=== PATIENT | female | born 1945 | race Caucasian/White ===

== ENCOUNTER 2016-10-31 21:26 | Observation (INO) | payer MEDICAID, MEDICARE, OTHER ==
--- NOTE | 2016-10-31 21:43 | ERNOTE ---
Neuro HPI ER Record Presenting Symptoms: weakness Time Seen by Provider: 10/31/16 21:30 Source: EMS Exam Limitations: clinical condition Allergies/Adverse Reactions: Allergies Allergy/AdvReac Type Severity Reaction Status Date / Time codeine Allergy Verified 11/30/13 17:21 Iodinated Contrast Media - Allergy Verified 11/30/13 17:21 Oral and [Iodinated Contrast Media - IV Dye] meperidine HCl [From Demerol] Allergy Verified 11/30/13 17:21 Home Medications: HOME MEDICATIONS Albuterol Sulfate [Albuterol Sulfate 2.5 MG/0.5ML] 2.5 mg IH QID 11/30/13 [Last Taken Unknown] Alprazolam [Xanax] 0.5 mg PO BID PRN 11/30/13 [Last Taken Unknown] Amitriptyline HCl 100 mg PO HS 11/30/13 [Last Taken Unknown] Atorvastatin Calcium [Lipitor] 80 mg PO HS 11/30/13 [Last Taken Unknown] Dexlansoprazole [Dexilant] 60 mg PO DAILY 11/30/13 [Last Taken Unknown] Ezetimibe [Zetia] 10 mg PO DAILY 11/30/13 [Last Taken Unknown] Furosemide [Lasix] 80 mg PO DAILY 11/30/13 [Last Taken Unknown] HYDROcodone/ACETAMINOPHEN [Vicodin 5-325] 1 each PO Q6H PRN 11/30/13 [Last Taken Unknown] Levothyroxine Sodium [Tirosint] 112 mcg PO DAILY 11/30/13 [Last Taken Unknown] Lisinopril 20 mg PO DAILY 11/30/13 [Last Taken Unknown] Omeprazole 20 mg PO DAILY 11/30/13 [Last Taken Unknown] Mometasone/Formoterol [Dulera 200 Mcg/5 Mcg Inhaler] 1 puff IH 10/31/16 [Last Taken Unknown] - History of Present Illness Narrative: Pt found around 20:00 by friend, confused and less responsive. Called EMS. pt complains of both headache then leg pain then denies Onset: cannot confirm onset Severity: moderate, severe - Character of Deficits Baseline Cognition: Present: alert, oriented x 4 Prior Treament: Reports: recently seen - yesterday by her PCP for headache, no abnormality found (per friends) and pt went home to sleep it off. Review of Systems - Narrative Narrative: minimal information available due to pt's MS. - Review of Systems Constitutional: Present: See HPI Gastrointestinal/Abdominal: Present: nausea, vomiting - today Neurological: Present: See HPI, headache - Patient's Past Medical History Patient History - Medical: Hypothyroidism Patient History - Cardiac/Respiratory: COPD, Hypertension Physical Exam - Physical Exam General Appearance: Present: wd/wn, alert, mild distress, anxious Eye Exam: Normal inspection: right, Abnormal pupil: bilateral - cataracts bilateral pupils slow to respond Neck: Present: normal inspection, supple Respiratory: Present: no respiratory distress, normal breath sounds, chest nontender, lungs clear Cardiovascular/Chest: Present: regular rate, rhythm, no murmur Gastrointestinal/Abdominal: Present: nontender, soft, abnormal bowel sounds - hypoactive Extremity Exam: Present: normal inspection, normal range of motion Neurological Exam: Present: alert, disoriented to time, disoriented to place, disoriented to situation, other - pt aggitated and restless. Skin Exam: Present: normal color, warm/dry Arsen Coma Scale - Assess Eye Opening: Spontaneous Motor: Obeys Commands Verbal: Confused - Total Coma Scale Total: 14 Stroke Inclusion/Exclusion Cri - Inclusion Questions: Onset of symptoms <3 1/2 hours of admission to ETC: No ED Progress - Results and Orders Patient's Lab Results:: I have reviewed the patient's lab results. Results and Orders: Laboratory Tests 10/31/16 10/31/16 10/31/16 21:35 21:35 22:02 WBC 12.3 H Hgb 9.0 L Hct 30.3 L Plt Count 449 Neutrophils % 79.3 H Sodium 131 L Potassium 3.9 Chloride 94 L Carbon Dioxide 26.0 Anion Gap 14.9 H BUN 13 Creatinine 0.84 Est GFR (Non-Af Amer) 71 BUN/Creatinine Ratio 15.5 Random Glucose 124 H Lactic Acid, Venous Calcium 9.1 Total Bilirubin 0.7 AST 29 ALT 15 L Alkaline Phosphatase 101 Total Protein 8.9 H Albumin 3.5 Urine Color Yellow Urine Appearance Clear Urine pH 6.0 Ur Specific [place] >=1.030 Urine Protein 100 H Urine Glucose (UA) Negative Urine Ketones Negative Urine Blood 25 H Urine Nitrate Negative Urine Bilirubin Negative Prot Sulfosalicylic Acd 2+ H Urine Urobilinogen Normal Ur Leukocyte Esterase Negative Urine RBC 5-10 H Urine WBC 10-25 H Ur Epithelial Cells >25 H Urine Bacteria 1+ H Hyaline Casts 0-5 H Coarse Granular Casts 0-5 H WBC Casts 5-10 H Urine Mucus Few - 1+ H Urine Culture Comments Culture to follow Ethyl Alcohol Less than 3.0 10/31/16 Unknown WBC Hgb Hct Plt Count Neutrophils % Sodium Potassium Chloride Carbon Dioxide Anion Gap BUN Creatinine Est GFR (Non-Af Amer) BUN/Creatinine Ratio Random Glucose Lactic Acid, Venous 1.6 Calcium Total Bilirubin AST ALT Alkaline Phosphatase Total Protein Albumin Urine Color Urine Appearance Urine pH Ur Specific [place] Urine Protein Urine Glucose (UA) Urine Ketones Urine Blood Urine Nitrate Urine Bilirubin Prot Sulfosalicylic Acd Urine Urobilinogen Ur Leukocyte Esterase Urine RBC Urine WBC Ur Epithelial Cells Urine Bacteria Hyaline Casts Coarse Granular Casts WBC Casts Urine Mucus Urine Culture Comments Ethyl Alcohol - Vital Signs Patient's Vital Signs:: I have reviewed the patient's vital signs. - EKG EKG: NSR - with 1st degree AV block EKG read: Interp. by me - X-Ray X-Ray #1 X-Ray: chest Interpretation: Reviewed by me X-ray Comments: IMPRESSION: 1. MILDLY ENLARGED CARDIAC SILHOUETTE. 2. MILD SENSATION MARKINGS, WHICH MAY REFLECT EARLY INTERSTITIAL EDEMA OR INTERSTITIAL FIBROTIC CHANGE. CORRELATION REQUIRED. Electronically signed by Tushar Salvador M.D.. - CT/Ultrasound CT/Ultrasound Narrative: CT head without contrast : IMPRESSION: 1. LIMITED EXAMINATION DUE TO MOTION ARTIFACT. 2. NO DEFINABLE ACUTE INTRACRANIAL PROCESS. - Progress/Reassessment Progress:: Improved Progress Note-Subjective: 10/31/16 23:45 Spoke with Carolina VINSON Hospitalist, she agrees with OBS admit. 11/01/16 00:06 Pt becoming more oriented, still rather restless and somewhat confused Departure Clinical Impression: Pyelonephritis - Departure Disposition: [facility] Condition: Fair
--- OUTSIDE RECORDS SUMMARY | 2016-10-31 21:48 | XMS REPORT | Continuity of Care Document ---
:1945 Author Organization [facility] ([facility]) Address [address] [place] [address] Phone [phone] Care Team Providers Name Role Phone Tushar Mcnulty Primary Care Provider [phone] Source Comments This disclosure is being made pursuant to the Care Everywhere program, applicable federal and state laws, and may not contain all informaitonavailable regarding this patient.[facility] ([facility]) Active Allergies and Adverse Reactions Allergen Noted Date Severity Reactions Comments Adhesive Tape Urticaria (Hives) Codeine Nausea & Vomiting shaking Iodinated Contrast Media 09/07/2014 Respiratory Distress - Oral And Iv Dye Iron 09/07/2014 OTHER Body shaking Niacin Pruritus,Angioedema Other Agent OTHER demerol Tramadol Hcl Nausea & Vomiting,Stomach Pain Current Medications Prescription Sig. Disp. Refills Start Date End Date Status atorvastatin 80 mg Take 80 mg by mouth Active tablet every evening. ezetimibe (ZETIA) 10 mg Take 10 mg by mouth Active tablet daily. amitriptyline 100 mg Take 100 mg by mouth Active tablet at bedtime. ALPRAZolam 0.5 mg tablet Take 0.5 mg by mouth Active 2 times daily. levothyroxine 112 mcg Take 112 mcg by Active tablet mouth every morning before breakfast. traZODone 50 mg tablet Take 50 mg by mouth Active at bedtime as needed. aspirin 325 mg tablet Take 650 mg by mouth Active daily. furosemide 80 mg tablet Take 80 mg by mouth Active daily. albuterol 90 Use 2 Puffs by Active mcg/Actuation inhaler inhalation every 4 hours as needed. fluticasone-salmeterol Use 1 Puff by Active (ADVAIR 250-50) inhaler inhalation every 12 hours. tiotropium (SPIRIVA) 18 Use 18 mcg by Active mcg inhalation capsule inhalation daily. Active Problems Problem Noted Date CAD (coronary artery disease) 09/07/2014 Overview: PCI to proximal LAD 1996 Coronary angiogram in 1998: patent LAD stent, non-obstructive disease in LCx and RCA Hyperlipidemia 09/07/2014 COPD (chronic obstructive pulmonary disease) 09/07/2014 Moderate aortic stenosis 09/07/2014 Overview: Mean gradient 22, peak gradient 44 mmHg (08/2014) Esophageal reflux 04/23/2005 Unspecified hypothyroidism 11/02/2002 Lumbago 11/02/2002 Unspecified essential hypertension 02/03/2002 Resolved Problems Problem Noted Date Resolved Date Vaginitis and vulvovaginitis, unspecified 10/26/2005 09/07/2014 SCREENING MAL NEOP-CERVIX 04/23/2005 09/07/2014 Coronary atherosclerosis of unspecified type of vessel, 11/29/2003 09/07/2014 sun'aq or graft Other malaise and fatigue 11/29/2003 09/07/2014 Shortness of breath 11/29/2003 09/07/2014 CHEST PAIN NOS 11/29/2003 09/07/2014 Other screening mammogram 11/02/2002 09/07/2014 SCREENING MAL NEOP-COLON 11/02/2002 09/07/2014 BENIGN HYPERTENSION 11/02/2002 09/07/2014 AFTERCARE RADIOLOGY THERAPIST USE MEDICATN 02/03/2002 09/07/2014 Pure hypercholesterolemia 02/03/2002 09/07/2014 CHRONIC AIRWAY OBSTRUCTION NEC 02/03/2002 09/07/2014 JOINT PAIN-HAND 08/05/2001 09/07/2014 URIN TRACT INFECTION NOS 12/23/2000 09/07/2014 Immunizations Name Dates Previously Given Next Due Hepatitis B, unspecified 12/29/1999 Influenza, unspecified 08/05/2003,08/05/2001 Pneumococcal Polysaccharide, PPSV23 (Pneumovax 23) 12/29/1999 Social History Tobacco Use Types Packs/Day Years Used Date Current Every Day Smoker Cigarettes 0.5 42 Smokeless Tobacco: Never Used Last Filed Vital Signs Vital Sign Reading Time Taken Blood Pressure 118/64 09/07/2014 3:49 PM [employer]EL [employer]LE G[employer]GER Pulse 76 09/07/2014 3:49 PM [employer]EL [employer] G[employer] Temperature 37.1 C (98.8 F) 09/07/2014 3:49 PM J[employer]EL [employer]LE GAUGER Respiratory Rate 16 09/07/2014 3:49 PM [employer]EL [employer]LE G[employer] Height 1.702 m (5' 7") 09/07/2014 3:49 PM [employer]EL [employer]LE G[employer] Weight 101.152 kg (223 lb) 09/07/2014 3:49 PM [employer]EL [employer] G[employer] Body Mass Index 34.92 09/07/2014 3:49 PM [employer]EL [employer]LE GAU[employer] Oxygen Saturation 98% 09/07/2014 3:49 PM J[employer]EL [employer]LE [employer] Plan of Care Health Maintenance Due Date Last Done Comments Tdap Vaccine 1957 Td Vaccine 1964 Colonoscopy 08/18/1996 Hepatitis B Vaccine (2 of 3 01/26/2000 12/29/1999 - Primary Series) Mammogram 04/23/2006 04/23/2005, Additional history exists 04/16/2001, 04/01/2000 Zoster Vaccine 2006 Lipid Disorder Screening 10/26/2010 10/26/2005, Additional history exists 04/23/2005, 03/30/2005 Osteoporosis Screening (DXA 2011 Bone Density) Pneumococcal Vaccine (1 of 2 2011 12/29/1999 - PCV13) Influenza Vaccine: Seasonal 02/13/2016 08/05/2003, (#1) 08/05/2001 HCV Screening Completed 12/23/2000, 12/07/1999 Results from Last 3 Months Not on file
[2016-10-31 21:50] LABS: Hematocrit 30.3 % (37.0-47.0); Mean Cell Volume 72.7 fl (78-100); Mean Corpuscular Hemoglobin 21.6 pg (27-31); Mean Corpuscular Hgb Conc 29.7 g/dl (32-36); Mean Platelet Volume 7.9 fl (6.0-9.5); Neutrophil # 9.8 K/mm3 (1.3-6.0); Neutrophil % 79.3 % (42-75.0); Platelet Count 449 K/mm3 (150-450); Red Blood Count 4.17 M/mm3 (4.2-5.4); Red Cell Distribution Width 20.3 % (11.5-14.0); White Blood Count 12.3 K/mm3 (4.0-10.5)
[2016-10-31 21:56] LABS: ALT 15 U/L (19-67); AST 29 U/L (0-48); Albumin * 3.5 gm/dl (3.4-5.0); Alkaline Phosphatase * 101 U/L (50-170); Anion Gap 14.9 mmol/L (6.8-13.8); BUN/Creatinine Ratio 15.5 (9.0-21.6); Bilirubin, Total 0.7 mg/dL (0.0-1.1); Blood Urea Nitrogen 13 mg/dL (3-23); Ca. Corrected For Albumin 9.2 mg/dL (8.4-10.2); Calcium * 9.1 mg/dL (7.9-10.9); Chloride 94 mmol/L (97-106); Glucose * 124 mg/dL (70-110); Potassium 3.9 mmol/L (3.4-4.6); Sodium 131 mmol/L (132-142); Total Protein 8.9 gm/dL (6.2-8.2)
[2016-10-31 22:10] LABS: Urine Bilirubin Negative (NEGATIVE); Urine Blood 25 /ul (NEGATIVE); Urine Ketone Negative (NEGATIVE); Urine Nitrite Negative (NEGATIVE); Urine Protein 100 mg/dL (NEGATIVE); Urine Specific Gravity >=1.030 SP.GR. (1.005-1.010); Urine Urobilinogen Normal (NORMAL)
[2016-10-31 22:20] LABS: Urine Appearance Clear; Urine Color Yellow
[2016-10-31 22:21] LABS: Urine Bacteria 1+; Urine Coarse Granular Cast 0-5 /LPF; Urine Hyaline Cast 0-5 /LPF; Urine Mucus Few - 1+
[2016-10-31] MEDS ORDERED: NORMAL SALINE 1,000 ML IV ONE (23:36)
--- OUTSIDE RECORDS SUMMARY | 2016-10-31 23:58 | XMS REPORT | Continuity of Care Document ---
:1945 Author Organization [facility] ([facility]) Address [address] [place] [address] Phone [phone] Care Team Providers Name Role Phone Tushar Mcnulty Primary Care Provider [phone] Source Comments This disclosure is being made pursuant to the Care Everywhere program, applicable federal and state laws, and may not contain all informaitonavailable regarding this patient.[facility] ([facility]) Active Allergies and Adverse Reactions Allergen Noted [...] of unspecified type of vessel, 11/29/2003 09/07/2014 [place] or graft Other malaise and fatigue 11/29/2003 09/07/2014 Shortness of breath 11/29/2003 09/07/2014 CHEST PAIN NOS 11/29/2003 09/07/2014 Other screening mammogram 11/02/2002 09/07/2014 SCREENING MAL NEOP-COLON 11/02/2002 09/07/2014 BENIGN HYPERTENSION 11/02/2002 09/07/2014 AFTERCARE REED FIXER USE MEDICATN 02/03/2002 09/07/2014 Pure hypercholesterolemia 02/03/2002 [...] Taken Blood Pressure 118/64 09/07/2014 3:49 PM [employer]TS E[employer]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
--- NOTE | 2016-11-01 00:48 | HP ---
Chief Complaint - Chief Complaint Date of Service: 11/01/16 Time of Service: 00:41 Chief Complaint: 'Confusion, weakness'. Source of HPI- Pt; unreliable, Friends - Elva & Nydia, RISHABH sy report. History of Present Illness: Mrs. Moe 71-yr-old WF pt who normally sees Dr. Tushar Mcnulty, a Family Practice Physician in [place]. History is unobtainable from the pt due to AMS, but she has neighbours who are at bedside and they assisted in providing the information. Apparently pt saw her PCP yesterday in [place] with complains of headache. Today, she was unreachable by phone and so a neighbour friend, Nydia , went over to check on her. She was found in bed and 'appeared to be talking to her parents, who have been long ago.' She also had vomited on herself and she could not realize that and 'thought someone had spit on her.' Neighbour friends state that she is normally very talkative and still drives around. But today, she was so weak to be assisted out of bed and so they called the EMS and she was brought to the [facility] ER. During evaluation at the ED, the head CT did not have any evidence of stroke.The CXR did not show any infiltrates or effusion. However, the UA showed presence of infection and slightly elevated WBC of 12,300. She will be admitted under observation status due the UTI. - Patient's Past Medical History Patient History - Medical: Hypothyroidism Patient History - Cardiac/Respiratory: COPD, Hypertension Patient History - Cancer: History Unknown - Family History Father Family History - Medical: History Unknown Mother Family History - Cardiac/Respiratory: History Unknown - Social History Living Situations: alone Abuse History: No History of abuse Psych History: No pertinent hx Does anyone smoke in the home?: No Smoking Status: Never smoker Alcohol Use: none Drug Use: none - Immunizations Immunizations Up to Date: Yes Hx Pneumococcal Vaccination: Yes History of Influenza Vaccine: No Review Of Systems (GEN) - Review of Systems Additional Comments: ROS unobtainable due to AMS. Allergies/Adverse Reactions: Allergies Allergy/AdvReac Type Severity Reaction Status Date / Time codeine Allergy Verified 11/30/13 17:21 Iodinated Contrast Media - Allergy Verified 11/30/13 17:21 Oral and [Iodinated Contrast Media - IV Dye] meperidine HCl [From Demerol] Allergy Verified 11/30/13 17:21 Home Medications: HOME MEDICATIONS Albuterol Sulfate [Albuterol Sulfate 2.5 MG/0.5ML] 2.5 mg IH QID 11/30/13 [Last Taken Unknown] Alprazolam [Xanax] 0.5 mg PO BID PRN 11/30/13 [Last Taken Unknown] Amitriptyline HCl 100 mg PO HS 11/30/13 [Last Taken Unknown] Atorvastatin Calcium [Lipitor] 80 mg PO HS 11/30/13 [Last Taken Unknown] Dexlansoprazole [Dexilant] 60 mg PO DAILY 11/30/13 [Last Taken Unknown] Ezetimibe [Zetia] 10 mg PO DAILY 11/30/13 [Last Taken Unknown] Furosemide [Lasix] 80 mg PO DAILY 11/30/13 [Last Taken Unknown] HYDROcodone/ACETAMINOPHEN [Vicodin 5-325] 1 each PO Q6H PRN 11/30/13 [Last Taken Unknown] Levothyroxine Sodium [Tirosint] 112 mcg PO DAILY 11/30/13 [Last Taken Unknown] Lisinopril 20 mg PO DAILY 11/30/13 [Last Taken Unknown] Omeprazole 20 mg PO DAILY 11/30/13 [Last Taken Unknown] Mometasone/Formoterol [Dulera 200 Mcg/5 Mcg Inhaler] 1 puff IH 10/31/16 [Last Taken Unknown] Exam - Exam Vital Signs: Vital Signs - Last Taken Temp 37.8 C H 10/31/16 23:49 Pulse 87 11/01/16 00:20 Resp 20 11/01/16 00:20 BP 164/65 11/01/16 00:20 Pulse Ox 94 11/01/16 00:20 Constitutional: Present: Mild distress, Somnolent, Other - Can answer a question but drift into sleep easily., Elderly, Looks Older than stated age ENT Exam: Present: dry mucous membranes. Absent: nasal drainage, pharyngeal erythema Eye Exam: left eye: normal inspection - blood shot Neck: Present: non-tender, full range of motion, supple Back Exam: Present: normal inspection, no CVA tenderness Breasts: Present: Exam deferred Respiratory: Present: lungs clear, no accessory muscle use Cardiovascular/Chest: Present: normal peripheral pulses, no chest tenderness, no edema, systolic murmur Abdomen: Present: Normal bowel sounds, soft, nontender /Rectal: Present: Exam deferred Extremity: Present: normal range of motion, non-tender, normal inspection Skin Exam: Present: cool/dry, pallor Lymphatic: Present: no adenopathy Neurologic: Present: no motor/sensory deficits, abnormal gait, disoriented x 3 Appearance: Present: impaired insight Eye contact: Present: decreased rate of speech, uncooperative Thoughts: Present: delusions, visual hallucinations Diagnostic Studies: Laboratory Results WBC 12.3 K/mm3 (4.0-10.5) H 10/31/16 21:35 RBC 4.17 M/mm3 (4.2-5.4) L 10/31/16 21:35 Hgb 9.0 gm/dL (12.5-16.0) L 10/31/16 21:35 Hct 30.3 % (37.0-47.0) L 10/31/16 21:35 MCV 72.7 fl (78-100) L 10/31/16 21:35 MCH 21.6 pg (27-31) L 10/31/16 21:35 MCHC 29.7 g/dl (32-36) L 10/31/16 21:35 RDW 20.3 % (11.5-14.0) H 10/31/16 21:35 Plt Count 449 K/mm3 (150-450) 10/31/16 21:35 MPV 7.9 fl (6.0-9.5) 10/31/16 21:35 Immature Gran % (Auto) 0.90 % (0.001-0.429) H 10/31/16 21:35 Immature Gran # (Auto) 0.11 K/mm3 (0.000-0.0310) H 10/31/16 21:35 Neutrophils % 79.3 % (42-75.0) H 10/31/16 21:35 Lymphocytes % 10.3 % (20-51) L 10/31/16 21:35 Monocytes % 9.4 % (0.0-9) H 10/31/16 21:35 Eosinophils % 0.0 % (0.0-3.0) 10/31/16 21:35 Basophils % 0.1 % (0.0-1.0) 10/31/16 21:35 Nucleated RBC % 0.0 k/mm3 (0-1) 10/31/16 21:35 Neutrophils # 9.8 K/mm3 (1.3-6.0) H 10/31/16 21:35 Lymphocytes # 1.3 k/mm3 (1.5-3.5) L 10/31/16 21:35 Monocytes # 1.2 k/mm3 (0.0-1.0) H 10/31/16 21:35 Eosinophils # 0.0 k/mm3 (0.0-0.7) 10/31/16 21:35 Absolute Basophils 0.0 k/mm3 (0.0-0.1) 10/31/16 21:35 Sodium 131 mmol/L (132-142) L 10/31/16 21:35 Plasma Sodium 131 mmol/L (130-142) 10/31/16 21:35 Potassium 3.9 mmol/L (3.4-4.6) 10/31/16 21:35 Chloride 94 mmol/L (97-106) L 10/31/16 21:35 Carbon Dioxide 26.0 mmol/L (24-32.6) 10/31/16 21:35 Anion Gap 14.9 mmol/L (6.8-13.8) H 10/31/16 21:35 BUN 13 mg/dL (3-23) 10/31/16 21:35 Creatinine 0.84 mg/dL (0.4-1.4) 10/31/16 21:35 Est GFR (Non-Af Amer) 71 mL/min (60-130) 10/31/16 21:35 BUN/Creatinine Ratio 15.5 (9.0-21.6) 10/31/16 21:35 Random Glucose 124 mg/dL (70-110) H 10/31/16 21:35 Lactic Acid, Venous 1.6 mmol/L (0.4-1.9) 10/31/16 Unknown Calcium 9.1 mg/dL (7.9-10.9) 10/31/16 21:35 Calcium Adj for Albumin 9.2 mg/dL (8.4-10.2) 10/31/16 21:35 Total Bilirubin 0.7 mg/dL (0.0-1.1) 10/31/16 21:35 AST 29 U/L (0-48) 10/31/16 21:35 ALT 15 U/L (19-67) L 10/31/16 21:35 Alkaline Phosphatase 101 U/L (50-170) 10/31/16 21:35 Total Protein 8.9 gm/dL (6.2-8.2) H 10/31/16 21:35 Albumin 3.5 gm/dl (3.4-5.0) 10/31/16 21:35 Urine Color Yellow 10/31/16 22:02 Urine Appearance Clear 10/31/16 22:02 Urine pH 6.0 pH (5.0-7.0) 10/31/16 22:02 Ur Specific [place] >=1.030 SP.GR. (1.005-1.010) 10/31/16 22:02 Urine Protein 100 mg/dL (NEGATIVE) H 10/31/16 22:02 Urine Glucose (UA) Negative mg/dL (NEGATIVE) 10/31/16 22:02 Urine Ketones Negative mg/dL (NEGATIVE) 10/31/16 22:02 Urine Blood 25 /ul (NEGATIVE) H 10/31/16 22:02 Urine Nitrate Negative (NEGATIVE) 10/31/16 22:02 Urine Bilirubin Negative mg/dl (NEGATIVE) 10/31/16 22:02 Prot Sulfosalicylic Acd 2+ mg/dL (0) H 10/31/16 22:02 Urine Urobilinogen Normal EU/dl (NORMAL) 10/31/16 22:02 Ur Leukocyte Esterase Negative /ul (NEGATIVE) 10/31/16 22:02 Urine RBC 5-10 /hpf (0-5) H 10/31/16 22:02 Urine WBC 10-25 /hpf (0-5) H 10/31/16 22:02 Ur Epithelial Cells >25 /hpf (0-5) H 10/31/16 22:02 Urine Bacteria 1+ (NONE) H 10/31/16 22:02 Hyaline Casts 0-5 /LPF (NONE) H 10/31/16 22:02 Coarse Granular Casts 0-5 /LPF (NONE) H 10/31/16 22:02 WBC Casts 5-10 /LPF (NONE) H 10/31/16 22:02 Urine Mucus Few - 1+ (NONE) H 10/31/16 22:02 Urine Culture Comments Culture to follow 10/31/16 22:02 Ethyl Alcohol Less than 3.0 mg/dL (0.0-10.0) 10/31/16 21:35 Assessment/Plan - Assessment/Plan (1) UTI (urinary tract infection) Assessment: UA showed UTI. Urine culture pending. Will switch to approbate antibiotics once culture results. Will provide IVF hydration and encourage oral intake. Trend CBC in am. Problem: Acute (2) Altered mental status Assessment: The head CT was negative for stroke. Her AMS is likely due to metabolic Encephalopathy caused by dehydration, electrolyte imbalance and UTI infection. Should see an improvement with hydration and when infection improves with IV antibiotics. If no improvement, could consider MRI brain to see if it caused by Vascular Dementia. Problem: Acute (3) Generalized weakness Assessment: Will involve for PT/OT for strengthening. Encourage ambulation. Problem: Acute (4) HTN (hypertension) Assessment: Needs medications verified. Will start prn hydrazine for elevated BP. Problem: Chronic Qualifiers: Hypertension type: essential hypertension Qualified Code(s): I10 - Essential (primary) hypertension
[2016-11-01] MEDS ORDERED: hydrALAZINE HCL 50 MG TABLET PO PRN (02:24)
[2016-11-01] MEDS: NORMAL SALINE 1,000 ML IV PRN ×2 (02:50→16:10)
[2016-11-01 06:05] LABS: Hematocrit 28.6 % (37.0-47.0); Hemoglobin 8.4 gm/dL (12.5-16.0); Mean Cell Volume 73.5 fl (78-100); Mean Corpuscular Hemoglobin 21.6 pg (27-31); Mean Corpuscular Hgb Conc 29.4 g/dl (32-36); Mean Platelet Volume 7.9 fl (6.0-9.5); Neutrophil # 10.2 K/mm3 (1.3-6.0); Neutrophil % 75.4 % (42-75.0); Platelet Count 395 K/mm3 (150-450); Red Blood Count 3.89 M/mm3 (4.2-5.4); Red Cell Distribution Width 19.9 % (11.5-14.0); White Blood Count 13.5 K/mm3 (4.0-10.5)
[2016-11-01 06:09] LABS: Total Cells Counted 100
[2016-11-01 06:17] LABS: Anion Gap 15.4 mmol/L (6.8-13.8); BUN/Creatinine Ratio 18.2 (9.0-21.6); Calcium * 8.6 mg/dL (7.9-10.9); Carbon Dioxide 23.2 mmol/L (24-32.6); Estimated Creat Clear 66.1; Potassium 3.6 mmol/L (3.4-4.6)
[2016-11-01 06:39] LABS: Basophil 1 % (0-1); Lymphocyte 16 % (20-51); Monocyte 3 % (0-9); Neutrophil 80 % (42-75); Neutrophil # 10.8 K/mm3 (1.3-6.0); Platelet Estimate Increased (NORMAL); Target Cells 3+; Tear Drop Cells 2+
[2016-11-01 06:40] LABS: Hypersegmented Polys 2+; Ovalocytes 1+; Rouleaux 1+
[2016-11-01] MEDS ORDERED: KETOROLAC TROMETHAMINE 15 MG/ML VIAL IV PRN (06:51)
[2016-11-01] MEDS: ACETAMINOPHEN 325 MG TABLET PO PRN ×2 (07:36→16:10)
[2016-11-01 10:27] LABS: Amylase * 50 U/L (25-115); Lipase 331 U/L (73-393)
[2016-11-01 13:35] LABS: Urine Bilirubin Negative (NEGATIVE); Urine Blood 50 /ul (NEGATIVE); Urine Ketone Negative (NEGATIVE); Urine Nitrite Negative (NEGATIVE); Urine Protein 15 mg/dL (NEGATIVE); Urine Urobilinogen Normal (NORMAL)
[2016-11-01 14:00] LABS: Urine Appearance Clear; Urine Color Yellow
[2016-11-01 14:02] LABS: Urine Bacteria 1+; Urine Hyaline Cast 0-5 /LPF; Urine WBC None Seen /hpf (0-5)
--- NOTE | 2016-11-01 16:15 | PN ---
Subjective - Date and Time Seen Date: 11/01/16 Time: 13:24 Subjective Narrative: Lyudmila is a 71 year old female admitted with weakness, possible UTI, and mental status changes. intermittent confusion throughout the day. bilat leg pain to palpation. mild diffuse ab pain to palpation. poor oral intake at home - also on lasix 80 mg daily at home in addition. no cp, no dyspnea. head ct non acute, on rocephin for possible uti. c/o headaches that have been present for "months" . UDS neg, ammonia level wnl. amylase/lipase wnl. states she had diarrhea last week. very poor historian. family and neighbor present in the room - they also given a vague history, only agree that she is not herself. Objective - Review of Systems Generalized/Overall Review: Reports: Weakness, Malaise, Fatigue EENTM: Reports: No Symptoms Reported Respiratory: Reports: No Symptoms Reported Cardiac: Reports: No Symptoms Reported Abdominal: Reports: Nausea, Vomiting, Abdominal Pain, Diarrhea. Denies: Hematemesis, Constipation, Melena, Bright blood from rectum Genitourinary Symptoms: Reports: No Symptoms Reported Musculoskeletal Complaints: Reports: Muscle Pain Neurological: Reports: Headache, Weakness Skin: Reports: No Symptoms Reported Endocrine: Reports: No Symptoms Reported Misc: All systems neg except as marked - Vitals Vitals: Last Vital Signs Temp 37.2 C 11/01/16 07:13 Pulse 68 11/01/16 07:13 Resp 20 11/01/16 07:13 BP 149/61 11/01/16 07:13 Pulse Ox 98 11/01/16 07:13 - Abnormal Lab Findings Abnormal Lab Findings: Abnormal Lab Results 11/01/16 11/01/16 11/01/16 Range/Units 05:50 05:50 13:30 WBC 13.5 H (4.0-10.5) K/mm3 RBC 3.89 L (4.2-5.4) M/mm3 Hgb 8.4 L (12.5-16.0) gm/dL Hct 28.6 L (37.0-47.0) % MCV 73.5 L (78-100) fl MCH 21.6 L (27-31) pg MCHC 29.4 L (32-36) g/dl RDW 19.9 H (11.5-14.0) % Immature Gran % (Auto) 0.70 H (0.001-0.429) % Immature Gran # (Auto) 0.09 H (0.000-0.0310) K/mm3 Neutrophils % 75.4 H (42-75.0) % Neutrophils % (Manual) 80 H (42-75) % Lymphocytes % 11.6 L (20-51) % Lymphocytes % (Manual) 16 L (20-51) % Monocytes % 12.0 H (0.0-9) % Neutrophils # 10.2 H (1.3-6.0) K/mm3 Neutrophils # (Manual) 10.8 H (1.3-6.0) K/mm3 Monocytes # 1.6 H (0.0-1.0) k/mm3 Platelet Estimate Increased H (NORMAL) Carbon Dioxide 23.2 L (24-32.6) mmol/L Anion Gap 15.4 H (6.8-13.8) mmol/L Random Glucose 117 H (70-110) mg/dL Urine Protein 15 H (NEGATIVE) mg/dL Urine Blood 50 H (NEGATIVE) /ul Urine RBC 5-10 H (0-5) /hpf Urine Bacteria 1+ H (NONE) Hyaline Casts 0-5 H (NONE) /LPF - Exam Constitutional: Present: Mild distress, Lethargic, Elderly, Looks Older than stated age ENT Exam: Present: hearing grossly normal Neck: Present: full range of motion, supple Breasts: Present: Exam deferred Respiratory: Present: chest non-tender, lungs clear, normal breath sounds, no respiratory distress, no accessory muscle use Cardiovascular/Chest: Present: normal peripheral pulses, regular rate, rhythm, no chest tenderness Abdomen: Present: soft, nondistended, tender - diffuse mild tenderness to palpation /Rectal: Present: Exam deferred Extremity: Present: normal range of motion, other - dehydration noted, bilat legs tender to palpation. Skin Exam: Present: warm/dry, no cyanosis, mottled Neurologic: Present: depressed affect, other - alert and orient x3 at the time of observation; at other times she is alert and oriented x1. Appearance: Present: disheveled, impaired recent memory Assessment/Plan Plan Narrative: UTI, suspected - culture pending - mini cath done to repeat UA as original UA had >25 epithelial cell. - cont rocephin iv - cont iv fluids, encourage po fluids, hold home med lasix - check labs in the am. altered mental status - likely due to severe dehydration. - continue iv fluids overnight and reassess in the am. generalized weakness - can be due to possible uti and/or dehydration. - encourage ambulation - PT/OT to see. HTN - vitals signs q 4 hours - vasotec iv prn to cover elevated bp. - avoid hypotension thus avoid hypoperfusion of the brain. - Problems/Diagnosis (1) Altered mental status Problem: Acute Qualifiers: Altered mental status type: unspecified Qualified Code(s): R41.82 - Altered mental status, unspecified (2) Generalized weakness Problem: Acute (3) Pyelonephritis Problem: Ruled-out (4) UTI (urinary tract infection) Problem: Acute Qualifiers: Urinary tract infection type: acute cystitis Hematuria presence: with hematuria Qualified Code(s): N30.01 - Acute cystitis with hematuria (5) HTN (hypertension) Problem: Chronic Qualifiers: Hypertension type: essential hypertension Qualified Code(s): I10 - Essential (primary) hypertension
[2016-11-01 17:30] LABS: Cocaine Ur Negative (NEGATIVE); Urine Barbiturate Negative (NEGATIVE); Urine Benzodiazepines Negative (NEGATIVE); Urine Opiates Negative (NEGATIVE); Urine PCP Negative (NEGATIVE); Urine THC Negative (NEGATIVE)
[2016-11-01 17:59] LABS: Iron 13 mcg/dL (35-120); Transferrin Sat. (% Sat.) 3 % (15-55)
[2016-11-01] MEDS: TIOTROPIUM BROMIDE 5 CAP INHALER IH SCH (18:01)
[2016-11-01] MEDS ORDERED: IRON SUCROSE COMPLEX 500 MG in NORMAL SALINE 250 ML IV ONE (18:50)
[2016-11-01] MEDS ORDERED: ENALAPRILAT DIHYDRATE 1.25 MG/ML VIAL IV PRN (18:53)
[2016-11-01] MEDS: traZODone HCL 50 MG TABLET PO SCH (20:27)
[2016-11-02] MEDS: NORMAL SALINE 1,000 ML IV PRN ×2 (01:53→11:44)
[2016-11-02] MEDS: ACETAMINOPHEN 325 MG TABLET PO PRN ×3 (01:56→22:53)
[2016-11-02 05:37] LABS: Hematocrit 26.9 % (37.0-47.0); Mean Cell Volume 77.3 fl (78-100); Mean Corpuscular Hemoglobin 22.4 pg (27-31); Mean Platelet Volume 8.1 fl (6.0-9.5); Platelet Count 372 K/mm3 (150-450); Red Blood Count 3.48 M/mm3 (4.2-5.4); Red Cell Distribution Width 20.5 % (11.5-14.0)
[2016-11-02 05:45] LABS: Anion Gap 13.6 mmol/L (6.8-13.8); BUN/Creatinine Ratio 22.4 (9.0-21.6); Calcium * 8.1 mg/dL (7.9-10.9); Carbon Dioxide 23.1 mmol/L (24-32.6); Potassium 3.7 mmol/L (3.4-4.6)
[2016-11-02 05:57] LABS: Hemoglobin 7.8 gm/dL (12.5-16.0)
[2016-11-02] MEDS: LEVOTHYROXINE SODIUM 100 MCG TABLET PO SCH (07:10)
[2016-11-02] MEDS: TIOTROPIUM BROMIDE 5 CAP INHALER IH SCH (09:54)
[2016-11-02] MEDS ORDERED: LISINOPRIL 20 MG TABLET PO STA (10:18)
[2016-11-02] MEDS ORDERED: BISACODYL 5 MG TABLET.DR PO ONE (13:28)
[2016-11-02] MEDS ORDERED: LISINOPRIL 10 MG TABLET PO STA (13:37)
[2016-11-02] MEDS ORDERED: BUTALB/ACETAMINOPHEN/CAFFEINE 1 TAB TABLET PO PRN (15:46)
[2016-11-02] MEDS ORDERED: traMADol HCL 50 MG TABLET PO PRN (17:15)
--- NOTE | 2016-11-02 17:29 | PN ---
Subjective - Date and Time Seen Date: 11/02/16 Time: 17:29 Subjective Narrative: Feels more alert, occassionally SOB, unable to walk more than 20 -30 feet with a walker C/O bilat knee pain. Objective - Review of Systems Generalized/Overall Review: Reports: Weakness Respiratory: Reports: Shortness of Breath. Denies: Cough Cardiac: Denies: Chest Pain, Edema Neurological: Reports: Headache, Anxiety, Depressed - Vitals Vitals: Last Vital Signs Temp 36.5 C 11/02/16 15:38 Pulse 65 11/02/16 15:38 Resp 20 11/02/16 15:38 BP 180/71 11/02/16 15:38 Pulse Ox 95 11/02/16 15:38 - Abnormal Lab Findings Abnormal Lab Findings: Laboratory Tests 11/02/16 05:30 WBC 9.0 D Hgb 7.8 L* Hct 26.9 L Plt Count 372 11/02/16 05:30 Plasma Sodium 137 Potassium 3.7 Chloride 104 Carbon Dioxide 23.1 L BUN 17 Creatinine 0.76 Est GFR (Non-Af Amer) 80 Troponin I .030 11/01/16 17:18 Transferrin % Sat 3 L Vitamin B12 211 - Exam Constitutional: Present: Elderly, Obese, Looks Older than stated age ENT Exam: Present: hearing grossly normal, moist mucous membranes Respiratory: Present: no accessory muscle use, rhonchi Cardiovascular/Chest: Present: regular rate, rhythm. Absent: tachycardia Abdomen: Present: Normal bowel sounds, soft, nontender, obese Extremity: Present: non-tender, normal inspection - vertical scars on both knees Skin Exam: Present: warm/dry, pallor Assessment/Plan Plan Narrative: 1. Altered mental status: Patient was thought to an UTI , first U/A had too many epi cells , 2nd U/A relatively NL - C/S - no growth. Improved with hydration. 2 . Anemia : - gradually drop in H/H from 9.0/30.3[10/31/16] to 7.8/26.8[11/02/16] with Tsat 3% and B12 level 211 pg /ml. Remote H/O gastric bypass. Was on NSAIDS. EGD/ Colonoscopy done in 2007. - negative. Rpt as outpt. Given Venofer 500 gm IV on 11/01/16 w/o problems. 3 . Hypertension: H/O CHF- EF 65% in 2003. no recent echo .- will need one as out patient. Titrate medication for optimal control. CHRONIC MEDICAL PROBLEMS: i COPD - on multiple inhalers. - stable. ii. Anxiety and depression iii. HLD - stable. iv. Chronic headaches. v. Osteoarthritis - Bilateral TKA. vi. Multiple hernias.
[2016-11-02] MEDS: traMADol HCL 50 MG TABLET PO PRN (17:46)
[2016-11-02] MEDS ORDERED: ALBUTEROL SULFATE 2.5 MG/3 ML VIAL.NEB IH PRN (17:47)
[2016-11-02] MEDS: LISINOPRIL 20 MG TABLET PO SCH (18:08)
[2016-11-02] MEDS: amLODIPine BESYLATE 5 MG TABLET PO SCH (18:08)
[2016-11-02] MEDS: TOPIRAMATE 50 MG TABLET PO SCH (20:25)
[2016-11-02] MEDS: traZODone HCL 50 MG TABLET PO SCH (20:25)
[2016-11-03] MEDS: traMADol HCL 50 MG TABLET PO PRN ×2 (01:33→06:46)
[2016-11-03 05:28] LABS: Hematocrit 31.4 % (37.0-47.0); Hemoglobin 9.2 gm/dL (12.5-16.0); Mean Cell Volume 75.5 fl (78-100); Mean Corpuscular Hemoglobin 22.1 pg (27-31); Mean Corpuscular Hgb Conc 29.3 g/dl (32-36); Mean Platelet Volume 7.9 fl (6.0-9.5); Neutrophil # 6.3 K/mm3 (1.3-6.0); Neutrophil % 67.5 % (42-75.0); Platelet Count 355 K/mm3 (150-450); Red Blood Count 4.16 M/mm3 (4.2-5.4); Red Cell Distribution Width 20.1 % (11.5-14.0); White Blood Count 9.3 K/mm3 (4.0-10.5)
[2016-11-03] MEDS: LEVOTHYROXINE SODIUM 100 MCG TABLET PO SCH (06:45)
[2016-11-03] MEDS ORDERED: PANTOPRAZOLE SODIUM 20 MG TABLET.DR PO SCH (07:00)
[2016-11-03] MEDS: TIOTROPIUM BROMIDE 5 CAP INHALER IH SCH (08:15)
[2016-11-03] MEDS: TOPIRAMATE 50 MG TABLET PO SCH (08:17)
[2016-11-03] MEDS: amLODIPine BESYLATE 5 MG TABLET PO SCH (08:17)
[2016-11-03] MEDS: LISINOPRIL 20 MG TABLET PO SCH (08:17)
[2016-11-03] MEDS ORDERED: CARVEDILOL 12.5 MG TABLET PO SCH (09:00)
[2016-11-03] MEDS ORDERED: CYANOCOBALAMIN 1,000 MCG TABLET PO SCH (09:00)
[2016-11-03] MEDS ORDERED: MAG HYDROX/ALUMINUM HYD/SIMETH 30 ML UDC PO PRN (09:18)
[2016-11-03] MEDS ORDERED: SPIRONOLACTONE 25 MG TABLET PO SCH (11:00)
[2016-11-03] MEDS ORDERED: CHOLECALCIFEROL 5,000 UNIT TABLET PO SCH (12:00)
[2016-11-03] MEDS ORDERED: CHLORTHALIDONE 25 MG TABLET PO STA (12:11)
[2016-11-03 12:55] VITALS: BP 177/62
[2016-11-03] MEDS: ACETAMINOPHEN 325 MG TABLET PO PRN (13:15)
--- NOTE | 2016-11-03 13:18 | DS ---
(1) Altered mental status Problem: Acute Qualifiers: Altered mental status type: unspecified Qualified Code(s): R41.82 - Altered mental status, unspecified (2) Generalized weakness Problem: Acute (3) Pyelonephritis Problem: Ruled-out (4) UTI (urinary tract infection) Problem: Ruled-out Qualifiers: Urinary tract infection type: acute cystitis Hematuria presence: with hematuria Qualified Code(s): N30.01 - Acute cystitis with hematuria (5) HTN (hypertension) Problem: Chronic Qualifiers: Hypertension type: essential hypertension Qualified Code(s): I10 - Essential (primary) hypertension (6) History of CHF (congestive heart failure) Problem: Chronic (7) COPD (chronic obstructive pulmonary disease) Problem: Chronic Qualifiers: COPD type: unspecified COPD Qualified Code(s): J44.9 - Chronic obstructive pulmonary disease, unspecified (8) Anxiety and depression Problem: Chronic (9) HLD (hyperlipidemia) Problem: Chronic Qualifiers: Hyperlipidemia type: unspecified Qualified Code(s): E78.5 - Hyperlipidemia , unspecified (10) Chronic headaches Problem: Chronic Qualifiers: Headache type: unspecified Intractability: not intractable Qualified Code (s): R51 - Headache (11) Osteoarthritis Problem: Chronic Qualifiers: Osteoarthritis location: multiple joints Osteoarthritis type: unspecified Qualified Code(s): M15.9 - Polyosteoarthritis, unspecified Description of Stay: Date of admission: 11/01/16 Date of Discharge: 11/03/16 Description of Stay: 11/01/16 71 year old female who presented to the ER with c/o LEWIS and weakness. wbc elevated at 12.3, ct of the head non acute, chest xray non acute, UA suspicious for infection. started on IV rocephin. also c/o bilat leg pain x2 days. 11/02/16 patient is more alert. short of breath at times. weak. repeat UA negative. mental status has improved with hydration. anemia revealed after hydration. pt given iv venofer 500 mg x1 on 11/01/16 due to iron sat 3%. B12 level 211. further anemia workup to be done outpatient. leg pain improved with iv hydration. 11/03/16 discharge day. patient encouraged to push oral fluids. follow up with dr. landrum in 1 week. Procedures Performed: none Discharge Disposition: Home self care Disposition: Home self-care Condition: Undetermined Discharge Activity: Activity as tolerated Discharge Diet: General/regular food, Other - push fluids Referrals: Tushar Mcnulty MD [Primary Care Provider] - Problem Oriented Discharge Instructions to Patient/Family: Dehydration, Adult, [id number] Additional Patient Instructions (free text): Fax and call [facility] Courtesy Visit at discharge with report. Patient will need an additional dose of IV venofer 500 mg x1 on 11/15/16 in the [facility]. Push fluids - Water!!!! Follow up with Dr. Landrum in 1 week on November 09 2016 at 10:15 am for a 10: 45 appointment to fill out paperwork. Follow up with General Surgery to discuss colonoscopy due to anemia. Do NOT take Fiorcet or ibuprofen. Will need a follow up appointment for an echocardiogram. Appointment on @ 8:00am for Echocardiogram . ASA 81 mg, Vit D3 5000 units, Vit B12 1 mcg, Tylenol/ acetaminophen 650 mg [ can be bought in a bottle of 100- cheaper- OTC meds]. New Medications - Tylenol - Aspirin 81 mg Daily - Chlorithalidone 25 mg Daily - Vitamin D3 5000 units daily - Vitamin B12 1000 units daily - Advair 1 puff 2 times a day - Spironlactone 25 mg daily - Topamax 50 mg daily - Norvasc 5 mg daily - Welbutrin XL 150 mg daily - Prevacid 30 mg daily Dose Change in Medications: - Lipitor decreased to 40 mg daily - Lisinopril increased to 20 mg 2 times a day Medications discontinued - Xanax - Amitriptylene - Fiorcet - Zetia - Lasix - Omeprazole - Dexilant - Dulera Prescriptions (Any new or edited meds): Acetaminophen [Tylenol] 650 mg PO Q6H PRN #1 bottle PRN Reason: Mild Pain Aspirin [Aspir-Low] 81 mg PO DAILY #100 tablet. Atorvastatin Calcium [Lipitor] 40 mg PO HS #90 tablet Chlorthalidone [Hygroton] 25 mg PO DAILY@1100 #30 tab Cholecalciferol [Vitamin D] 5,000 unit PO DAILY #100 tablet Cyanocobalamin [Vitamin B-12] 1,000 mcg PO DAILY #100 tablet Fluticasone/Salmeterol [Advair 250-50 Diskus] 1 puff IH BID #1 disk.w.dev Lisinopril [Zestril] 20 mg PO BID #60 tablet Spironolactone [Aldactone] 25 mg PO DAILY@1100 #30 tablet Topiramate [Topamax] 50 mg PO DAILY@1900 #60 tablet amLODIPine BESYLATE [Norvasc] 5 mg PO BID #60 tablet buPROPion HCL [Wellbutrin XL] 150 mg PO DAILY #30 tab Complete Home Medications List: Complete Home Medication List: Albuterol Sulfate [Albuterol Sulfate 2.5 MG/0.5ML] 2.5 mg IH QID 11/30/13 Levothyroxine Sodium [Tirosint] 100 mcg PO DAILY 11/30/13 Albuterol Sulfate [Proair Hfa] 2 puff IH QID PRN 11/01/16 Ketoconazole 60 gm TP BID 11/01/16 Lansoprazole [Prevacid] 30 mg PO DAILY 11/01/16 Tiotropium Lind [Spiriva] 1 cap IH DAILY 11/01/16 Triamcinolone Acetonide [Kenalog 0.1%] 1 appl TP BID PRN 11/01/16 buPROPion HCL [Wellbutrin XL] 150 mg PO DAILY #30 tab 11/01/16 traZODone HCL [Trazodone HCl] 50 mg PO HS 11/01/16 Acetaminophen [Tylenol] 650 mg PO Q6H PRN #1 bottle 11/03/16 Aspirin [Aspir-Low] 81 mg PO DAILY #100 tablet. 11/03/16 Atorvastatin Calcium [Lipitor] 40 mg PO HS #90 tablet 11/03/16 Chlorthalidone [Hygroton] 25 mg PO DAILY@1100 #30 tab 11/03/16 Cholecalciferol [Vitamin D] 5,000 unit PO DAILY #100 tablet 11/03/16 Cyanocobalamin [Vitamin B-12] 1,000 mcg PO DAILY #100 tablet 11/03/16 Fluticasone/Salmeterol [Advair 250-50 Diskus] 1 puff IH BID #1 disk.w.dev Lisinopril [Zestril] 20 mg PO BID #60 tablet 11/03/16 Spironolactone [Aldactone] 25 mg PO DAILY@1100 #30 tablet 11/03/16 Topiramate [Topamax] 50 mg PO DAILY@1900 #60 tablet 11/03/16 amLODIPine BESYLATE [Norvasc] 5 mg PO BID #60 tablet 11/03/16 Iron Sucrose Complex [Venofer] 500 mg IV ONCE 1 Days 11/05/16 Amb Orders for Discharge: CBC Time Frame: 1 Week, Location: Determined By Patient US Echocardiogram 2D/M Mode * Time Frame: 1 Week, Location: Determined By Patient
== END 2016-11-03 14:45 | disposition home or self-care (01) ==
LOC: ER 21:26 → MS 23:52
PROVIDERS: ADMIT Nurse Practitioner; ATTEND Internal Medicine
DX: E86.0 Dehydration (principal); D50.9 Iron deficiency anemia, unspecified; N30.01 Acute cystitis with hematuria; R41.82 Altered mental status, unspecified; R53.1 Weakness; I10 Essential (primary) hypertension; I50.9 Heart failure, unspecified; J44.9 Chronic obstructive pulmonary disease, unspecified; F41.8 Other specified anxiety disorders; E78.5 Hyperlipidemia, unspecified; R51 Headache; M15.9 Polyosteoarthritis, unspecified
CPT/HCPCS: 36415; 36430; 70450; 71010; 80048; 80053; 80307; 81001; 82140; 82150; 82607; 83540; 83550; 83605; 83690; 83880; 84484; 85007; 85025; 86850; 86900; 87086; 93005; 94762; 96365; 96366; 96367; 96375; 97116; 97162; 97165; 99284; G0378; G0481; G8978; G8979; G8980; G8987; G8988; G8989; P9016

== ENCOUNTER 2016-12-04 16:15 | Emergency (ER) | payer MEDICARE ==
--- NOTE | 2016-12-04 17:01 | ERNOTE ---
ER Female HPI Stated Complaint: URINARY PROBLEM,EDEMA, CELLULITIS Presenting Symptoms: dysuria Time Seen by Provider: 12/04/16 16:54 Exam Limitations: no limitations Immunizations: IMMUNIZATION HX Immunizations Up to Date Yes History of Influenza Vaccine No Hx Pneumococcal Vaccination Yes Allergies/Adverse Reactions: Allergies codeine Allergy (Verified 12/04/16 16:48) Iodinated Contrast Media - Oral and [Iodinated Contrast Media - IV Dye] Allergy (Verified 12/04/16 16:48) Patient states that her BP goes down meperidine HCl [From Demerol] Allergy (Verified 12/04/16 16:48) niacin Allergy (Verified 12/04/16 16:48) Home Medications: HOME MEDICATIONS Albuterol Sulfate [Albuterol Sulfate 2.5 MG/0.5ML] 2.5 mg IH QID 11/30/13 [Last Taken Unknown] Levothyroxine Sodium [Tirosint] 100 mcg PO DAILY 11/30/13 [Last Taken Unknown] Albuterol Sulfate [Proair Hfa] 2 puff IH QID PRN 11/01/16 [Last Taken Unknown] Ketoconazole 60 gm TP BID 11/01/16 [Last Taken Unknown] Lansoprazole [Prevacid] 30 mg PO DAILY 11/01/16 [Last Taken Unknown] Tiotropium Enigma [Spiriva] 1 cap IH DAILY 11/01/16 [Last Taken Unknown] Triamcinolone Acetonide [Kenalog 0.1%] 1 appl TP BID PRN 11/01/16 [Last Taken Unknown] buPROPion HCL [Wellbutrin XL] 150 mg PO DAILY #30 tab 11/01/16 [Last Taken Unknown] traZODone HCL [Trazodone HCl] 50 mg PO HS 11/01/16 [Last Taken Unknown] Acetaminophen [Tylenol] 650 mg PO Q6H PRN #1 bottle 11/03/16 [Last Taken Unknown ] Aspirin [Aspir-Low] 81 mg PO DAILY #100 tablet. 11/03/16 [Last Taken Unknown] Atorvastatin Calcium [Lipitor] 40 mg PO HS #90 tablet 11/03/16 [Last Taken Unknown] Chlorthalidone [Hygroton] 25 mg PO DAILY@1100 #30 tab 11/03/16 [Last Taken Unknown] Cholecalciferol [Vitamin D] 5,000 unit PO DAILY #100 tablet 11/03/16 [Last Taken Unknown] Cyanocobalamin [Vitamin B-12] 1,000 mcg PO DAILY #100 tablet 11/03/16 [Last Taken Unknown] Fluticasone/Salmeterol [Advair 250-50 Diskus] 1 puff IH BID #1 disk.w.dev [Last Taken Unknown] Lisinopril [Zestril] 20 mg PO BID #60 tablet 11/03/16 [Last Taken Unknown] Spironolactone [Aldactone] 25 mg PO DAILY@1100 #30 tablet 11/03/16 [Last Taken Unknown] Topiramate [Topamax] 50 mg PO DAILY@1900 #60 tablet 11/03/16 [Last Taken Unknown ] amLODIPine BESYLATE [Norvasc] 5 mg PO BID #60 tablet 11/03/16 [Last Taken Unknown] Iron Sucrose Complex [Venofer] 500 mg IV ONCE 1 Days 11/05/16 [Last Taken Unknown] Phenazopyridine HCl [Pyridium] 100 mg PO TID #6 tab 12/04/16 [Last Taken Unknown ] - History of Present Illness Narrative: Patient presents with burning on urination, onset of symptoms was approximately one week ago. Patient rates the pain and perhaps a 5 on a scale of 1-10. She also has a cough secondary to her chronic smoking. Timing: Present: intermittent Quality: Present: moderate Onset Location: Present: suprapubic Radiation: Present: none Activities at Onset: Present: none Associated Symptoms: Present: denies symptoms Review of Systems - Review of Systems Constitutional: Present: See HPI EYE: Present: no symptoms reported ENT: Present: no symptoms reported Respiratory: Present: cough Cardiology: Present: no symptoms reported Gastrointestinal/Abdominal: Present: no symptoms reported Genitourinary: Present: dysuria Musculoskeletal: Present: no symptoms reported Skin: Present: no symptoms reported Neurological: Present: no symptoms reported Endocrine: Present: no symptoms reported Hematologic/Lymphatic: Present: no symptoms reported Psych: Present: no symptoms reported - Patient's Past Medical History Patient History - Medical: Cataracts, Hypothyroidism Patient History - Cardiac/Respiratory: COPD, Hypertension, Myocardial Infarction Patient History - Cancer: History Unknown Patient History - Surgical Procedures: Cardiac stent, Total Knee Replacement - Family History Father Family History - Medical: History Unknown Family History - Cancer: Kidney Mother Family History - Medical: , Diabetes Type 2 Insulin Dependent Family History - Cardiac/Respiratory: History Unknown Family History - Cancer: Pancreatic - Social History Living Situations: alone Abuse History: No History of abuse Psych History: No pertinent hx Does anyone smoke in the home?: No Do you dip or chew tobacco: No Alcohol Use: none Drug Use: none - Immunizations Immunizations Up to Date: Yes Hx Pneumococcal Vaccination: Yes History of Influenza Vaccine: No Physical Exam - Physical Exam General Appearance: Present: wd/wn, alert, moderate distress Eye Exam: Normal inspection: bilateral, PERRL: bilateral Ears, Nose, Throat: Present: normal ENT inspection, H, normal pharynx Neck: Present: normal inspection, nontender Respiratory: Present: no respiratory distress, no accessory muscle use, chest nontender, wheezing, other - fine coarse breath sounds Cardiovascular/Chest: Present: regular rate, rhythm, no murmur, normal peripheral pulses Gastrointestinal/Abdominal: Present: normal bowel sounds, nondistended, soft, no organomegaly, tenderness - suprapubic Rectal Exam: Present: deferred Back Exam: Present: normal inspection, normal range of motion Extremity Exam: Present: normal inspection, non-tender, no edema, normal range of motion Neurological Exam: Present: alert, oriented, normal mood/affect Skin Exam: Present: normal color, warm/dry Lymphatic Exam: Present: no adenopathy ED Progress - Results and Orders Patient's Lab Results:: I have reviewed the patient's lab results. - Vital Signs Patient's Vital Signs:: I have reviewed the patient's vital signs. Vital Signs: Vital Signs 12/04/16 16:31 Temperature 36.2 C L Pulse Rate 71 Respiratory 16 Rate Blood Pressure 106/48 O2 Sat by Pulse 97 Oximetry - Progress/Reassessment Chief Complaint: Urinary Tract Problems Plan - Plan Plan: No obvious urinary tract infection for patient to be having bladder spasms. We will start the patient on Pyridium and have her follow-up with her family physician in one week. Departure Clinical Impression: UTI symptoms - Departure Disposition: Home self-care Condition: Good Instructions: Interstitial Cystitis Prescriptions: Phenazopyridine HCl [Pyridium] 100 mg PO TID #6 tab
--- OUTSIDE RECORDS SUMMARY | 2016-12-04 17:03 | XMS REPORT | Continuity of Care Document ---
:1945 Author Organization [facility] ([facility]) Address [address] [place] [address] Phone [phone] Care Team Providers Name Role Phone Tushar Mcnulty Primary Care Provider [phone] Source Comments This disclosure is being made pursuant to the Care Everywhere program, applicable federal and state laws, and may not contain all informaitonavailable regarding this patient.[facility] ([facility]) Active Allergies and Adverse Reactions Allergen Noted [...] of unspecified type of vessel, 11/29/2003 09/07/2014 kashia or graft Other malaise and fatigue 11/29/2003 09/07/2014 Shortness of breath 11/29/2003 09/07/2014 CHEST PAIN NOS 11/29/2003 09/07/2014 Other screening mammogram 11/02/2002 09/07/2014 SCREENING MAL NEOP-COLON 11/02/2002 09/07/2014 BENIGN HYPERTENSION 11/02/2002 09/07/2014 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
[2016-12-04 17:27] LABS: Urine Bilirubin Negative (NEGATIVE); Urine Blood Negative /ul (NEGATIVE); Urine Ketone Negative (NEGATIVE); Urine Nitrite Negative (NEGATIVE); Urine Protein Negative (NEGATIVE); Urine Urobilinogen Normal (NORMAL)
[2016-12-04 17:35] LABS: Urine Appearance Clear; Urine Bacteria 1+; Urine Color Yellow; Urine Hyaline Cast 0-5 /LPF; Urine RBC None Seen /hpf (0-5); Urine WBC None Seen /hpf (0-5)
[2016-12-04 17:48] VITALS: BP 133/65
== END 2016-12-04 17:49 | disposition home or self-care (01) ==
LOC: ER 16:15
DX: R39.9 Unspecified symptoms and signs involving the genitourinary system (principal); Z95.5 Presence of coronary angioplasty implant and graft